=== PATIENT | male | born 1945 | race Caucasian/White ===

== ENCOUNTER 2017-05-26 07:39 | Day surgery (SDC) | payer MEDICARE ==
[~2017-05-26] VITALS: Ht 154.9 cm; Wt 56.7 kg
[~2017-05-26 07:39] MED LIST: BUPROPION HCL100 M1 PO; FLUTICASONE PRO16 GM NASAL; HUMULIN R100 U/ML SC; IMODIUM2 MG PO; LANTUS SOL100 UNIT/1 SC; PROPRANOLOL HCL20 MG PO
[2017-05-26 08:42] LABS: HEMATOCRIT 39.5 % (42.0-54.0); HEMOGLOBIN 13.3 g/dL (13.5-17.5); MCH 32.4 pg (26.0-34.0); MCHC 33.7 g/dL (31.0-37.0); MCV 96.1 fL (80.0-100.0); MEAN PLATELET VOLUME 10.7 fL (7.4-10.4); RBC 4.11 10x6/uL (4.20-6.10); RDW 13.4 % (11.5-14.5); WBC 4.9 10x3/uL (4.8-10.8)
[2017-05-26 08:55] LABS: ANION GAP 13.9 mmol/L (8-16); CARBON DIOXIDE 26.6 mmol/L (21.0-32.0); CREATININE - SERUM 1.2 mg/dL (0.6-1.3); POTASSIUM - SERUM 3.5 mmol/L (3.5-5.1)
[2017-05-26 09:00] VITALS: BP 120/75; Ht 154.9 cm; Wt 56.7 kg
--- NOTE | 2017-05-26 12:49 | NUR ---
PT ON TRANSPORT CART FOR PROCEEDURE
--- NOTE | 2017-05-31 15:46 | OP ---
PATIENT NAME: QUYEN PEDERSEN MEDICAL RECORD: [id number] :43 LOCATION:D.[facility] ADMISSION DATE: SURGEON: BILLY BROUSSARD MD DATE OF OPERATION: 05/26/2017 PREOPERATIVE DIAGNOSIS: A flat cecal polyp. POSTOPERATIVE DIAGNOSES: Flat cecal polyp with 3 additional sessile polyps ranging in size from 6 mm-1.0 cm. PROCEDURES: 1. Total colonoscopy to cecum. 2. Hot biopsy forceps polypectomies times 3. 3. Cecal polypectomy utilizing the argon plasma power shovel operator helper. SURGEON: Billy Broussard M.D. SOIL CONSERVATIONIST: None. BLOOD LOSS: Minimal. ANESTHESIA: General. COMPLICATIONS: None. OPERATIVE COURSE: The patient was conveyed to the operating room electively on 05/25/17. General anesthesia was induced by the anesthesia staff. The patient was placed in the [place] position. A digital rectal examination was performed. Prostate was symmetric and enlarged, and without nodules. A colonoscope was inserted through the anus. It was easily advanced to the cecum. The prep was adequate. A cecal polyp was noted. Cold endoscopic biopsies of the cecal polyp were performed. I then ablated the rest of the polyp with the argon plasma power shovel operator helper with the right colon setting in the forced mode. I slowly withdrew the endoscope. I dragged the folds. The pullback was greater than a 16-minute pullback. I used normal imaging as well as narrow band imaging. Three more polyps were noted. These were removed in their entireties utilizing the hot biopsy forceps polypectomy technique. A retroflexed view was to obtained in the rectum. I then unretroflexed the scope and removed it under direct vision. I will see the patient in my office in 2-3 weeks. I will plan for another colonoscopy with the argon plasma power shovel operator helper in 1 year. TRANSINT:[id number] Voice Confirmation ID: [id number] DOCUMENT ID: [id number] BILLY BROUSSARD MD at 1546 CC: ROBBIE REYNOSO MD and WINNIE RAMIREZ DO [id number] DICTATION DATE: 05/26/17 1324 PRODUCTION ENGINEER TRACK: 05/26/[address] [facility] 05/26/17 [facility] [address] [place] [address]
== END 2017-05-26 15:25 | disposition home or self-care (01) ==
LOC: D.OPS 07:39 → D.PAN 08:15 → D.OPS 10:30
PROVIDERS: Anesthesiology
DX: D12.0 Benign neoplasm of cecum (principal); J45.909 Unspecified asthma, uncomplicated; E11.9 Type 2 diabetes mellitus without complications; Z01.812 Encounter for preprocedural laboratory examination

== ENCOUNTER 2018-08-10 07:40 | Day surgery (SDC) | payer MEDICARE ==
[~2018-08-10] VITALS: Ht 154.9 cm; Wt 54.4 kg
[2018-08-10 08:20] LABS: ANION GAP 12.1 mmol/L (8-16); CALCIUM 8.9 mg/dL (8.5-10.1); CARBON DIOXIDE 28.7 mmol/L (21.0-32.0); CREATININE - SERUM 1.2 mg/dL (0.6-1.3); POTASSIUM - SERUM 4.8 mmol/L (3.5-5.1)
[2018-08-10] MEDS ORDERED: SINGULAIR10 MG PO (08:28)
[2018-08-10 08:30] LABS: HEMATOCRIT 36.9 % (42.0-54.0); HEMOGLOBIN 12.7 g/dL (13.5-17.5); MCH 33.9 pg (26.0-34.0); MCHC 34.4 g/dL (31.0-37.0); MCV 98.4 fL (80.0-100.0); RBC 3.75 10x6/uL (4.20-6.10); RDW 13.1 % (11.5-14.5); WBC 5.4 10x3/uL (4.8-10.8)
[2018-08-10 08:37] VITALS: BP 112/71; Ht 154.9 cm; Wt 54.4 kg
== END 2018-08-10 14:15 | disposition home or self-care (01) ==
LOC: D.OPS 07:40 → D.PAN 08:45 → D.OPS 08:45
PROVIDERS: Anesthesiology
DX: Z53.29 Procedure and treatment not carried out because of patient's decision for other reasons (principal); Z01.811 Encounter for preprocedural respiratory examination; Z01.810 Encounter for preprocedural cardiovascular examination; Z01.812 Encounter for preprocedural laboratory examination

== ENCOUNTER 2019-06-20 06:01 | Day surgery (SDC) | payer MEDICARE ==
[~2019-06-20] VITALS: Ht 154.9 cm; Wt 54.5 kg
[~2019-06-20 06:01] MED LIST changes: +SINGULAIR10 MG PO
[2019-06-20 06:30] LABS: HEMATOCRIT 35.8 % (42.0-54.0); HEMOGLOBIN 12.2 g/dL (13.5-17.5); MCH 33.2 pg (26.0-34.0); MCHC 34.1 g/dL (31.0-37.0); MCV 97.5 fL (80.0-100.0); MEAN PLATELET VOLUME 11.1 fL (7.4-10.4); RBC 3.67 10x6/uL (4.20-6.10); RDW 13.8 % (11.5-14.5); WBC 4.3 10x3/uL (4.8-10.8)
[2019-06-20 06:47] LABS: CALCIUM 8.9 mg/dL (8.5-10.1); CARBON DIOXIDE 29.1 mmol/L (21.0-32.0); CREATININE - SERUM 1.4 mg/dL (0.6-1.3); POTASSIUM - SERUM 4.1 mmol/L (3.5-5.1)
[2019-06-20 06:56] VITALS: BP 108/71; Ht 154.9 cm; Wt 54.5 kg
--- NOTE | 2019-06-20 11:07 | HP ---
PATIENT: QUYEN PEDERSEN MEDICAL RECORD: [id number] ACCOUNT: [id number] LOCATION:[facility] : 43 ADMISSION DATE: 06/20/19 PCP: ROBBIE REYNOSO MD HISTORY AND PHYSICAL EXAMINATION HISTORY OF PRESENT ILLNESS: The patient is here to undergo colonoscopy. He has had no rectal bleeding. No abdominal pain. He has had a history of a cecal polyp, which was a flat polyp. Additional sessile polyps were noted during his colonoscopy back in 2016 that was performed by me. The pathology on the polyps revealed a tubular adenoma at 90 cm, a tubular adenoma at 1.1 meters, and a tubular adenoma of the cecum. The risks, possible complications, and alternatives to the procedure were explained to the patient. He elects to proceed. SOCIAL HISTORY: Former smoker. PAST MEDICAL AND SURGICAL HISTORY: Asthma, [id number] diabetes mellitus. HOME MEDICATIONS: Please see the nursing list. ALLERGIES: No known drug allergies. PHYSICAL EXAMINATION: GENERAL: The patient does not appear acutely ill. He does appear chronically ill. VITAL SIGNS: Reviewed. BACK: Thoracic kyphosis is present. EARS: External ears appear normal. EYES: Extraocular movements are intact. NECK: Trachea is midline. CHEST: No intercostal retractions. PULMONARY: Nonlabored. IMPRESSION: History of multiple colon polyps. PLAN: Will be surveillance colonoscopy. TRANSINT:[id number] Voice Confirmation ID: [id number] DOCUMENT ID: [id number] BILLY BROUSSARD MD at 1107 CC: ROBBIE REYNOSO MD and WINNIE RAMIREZ DO [id number] DICTATION DATE: 06/20/19 1012 SPORTS LAWYER: 06/20/19 1054 [address] [facility] [address] [place] [id number]
--- NOTE | 2019-06-20 12:01 | OP ---
PATIENT NAME: QUYEN PEDERSEN MEDICAL RECORD: [id number] :43 LOCATION:D.[facility] ADMISSION DATE: SURGEON: BILLY BROUSSARD MD DATE OF OPERATION: 06/20/2019 PRINCIPAL DIAGNOSIS: History of multiple colon polyps including a flat cecal polyp. POSTOPERATIVE DIAGNOSES: History of multiple colon polyps including a flat cecal polyp, with a total of 3 polyps. One appeared to be some regrowth of a polyp within the scar in the cecum. The other 2 were a 1.5 cm semipedunculated polyp in the ascending colon and then another polyp, which was a sessile polyp it was 9 mm x 1.0 cm. Mild pandiverticulosis. PROCEDURES: 1. Total colonoscopy to cecum. 2. Hot biopsy forceps polypectomies times 3. SURGEON: Billy Broussard MD PASTEURIZER HELPER: None. BLOOD LOSS: Minimal. ANESTHESIA: IV sedation. COMPLICATIONS: None. The risks, possible complications and alternatives to the procedure were explained to the patient. He elects to proceed. The discussion specifically included, but was not limited to, bleeding requiring emergency reoperation, infection, polypoid recurrence, the possible need for intestinal resection in the future, possibility of endoscopic perforation. ENDOSCOPIC COURSE: The patient was conveyed to the endoscopy suite electively on 06/20/2019. IV sedation was induced by the anesthesia staff. The patient was placed in the [place] position. A digital rectal examination was performed. The prostate was enlarged, symmetric, somewhat firm, but I detected no nodules. The colonoscope was inserted through the anus. It was easily advanced to the cecum. The prep was adequate. I slowly withdrew the endoscope. I noted a cecal scar, which was a stellate scar and there appeared to be some polypoid tissue at the center of this, which would represent regrowth of this flat cecal polyp. I performed a hot biopsy forceps polypectomy here. I slowly withdrew the endoscope. The pullback was greater than 18-minute pullback. I dragged the folds. I noted a semi-pedunculated polyp of the ascending colon, which was removed in its entirety utilizing the hot biopsy forceps polypectomy technique. Continuing to withdraw the endoscope, I identified another polyp and this was removed in its entirety utilizing the hot biopsy forceps polypectomy technique. A retroflexed view was obtained in the rectum. I then unretroflexed the scope and removed it under direct vision. OPERATIVE REPORT [id number] QUYEN PEDERSEN I will see the patient back in my office in 2-3 weeks. Unless there are worrisome findings pathologically then that will change things, otherwise I will plan for his next surveillance colonoscopy to take place in 3 years. TRANSINT:[id number] Voice Confirmation ID: [id number] DOCUMENT ID: [id number] BILLY BROUSSARD MD at 1201 CC: ROBBIE REYNOSO MD and WINNIE RAMIREZ DO [id number] DICTATION DATE: 06/20/19 1113 SCHOOL BUSINESS MANAGER: 06/20/19 1125 [address] [facility] [address] [place] [address]
--- NOTE | 2019-06-20 15:05 | NUR ---
[address] BROUSSARD. PT INFORMED OF PROCEDURE FINDINGS. PT REMAINS VERY SLEEPY. Richard HOWARD R.N.
--- NOTE | 2019-06-20 15:09 | NUR ---
1205 RETAINED FULL LIQUID DIET. UP TO BATHROOM WITH ASSISTANCE. IV DC'ED WITH CATH INTACT BY Sheela ROMO R.N. PT DRESSING. Richard HOWARD R.N. 1215 PT DRESSED. AWAKE & ALERT. GIVEN DISCHARGE INSTRUCTIONS BY Sheela ROMO R.N. TO PRIVATE CAR PER WHEELCHAIR BY STAFF. HOME WITH MALE FRIEND/FAMILY MEMBER. Richard HOWARD R.N.
== END 2019-06-20 12:15 | disposition home or self-care (01) ==
LOC: D.OPS 06:01
PROVIDERS: Anesthesiology; ATTEND Surgery
DX: Z86.010 Personal history of colon polyps (principal); K63.5 Polyp of colon; K57.90 Diverticulosis of intestine, part unspecified, without perforation or abscess without bleeding